=== PATIENT | female | born 1955 | race Caucasian/White ===

== ENCOUNTER 2017-11-11 14:45 | Inpatient (IN) | payer OTHER ==
[~2017-11-11] VITALS: Ht 157.5 cm; Wt 68.0 kg
[2017-11-12] MEDS ORDERED: NORVASC5 MG PO (10:44)
[2017-11-12] MEDS ORDERED: SYNTHROID88 MCG PO (10:44)
[2017-11-15] MEDS ORDERED: COLACE100 MG PO (09:28)
[2017-11-15] MEDS ORDERED: ULTRACET PO (09:28)
== END 2017-11-15 09:42 | DRG 743 ==
LOC: SURH 11-14 01:15 → O/R 11-14 06:33 → SURH 11-14 08:45 → OB/GYN 11-14 15:05
PROVIDERS: Obstetrics & Gynecology Gynecologic Oncology
PROC: 0UT74ZZ Resection of Bilateral Fallopian Tubes, Percutaneous Endoscopic Approach (ICD-10-PCS; 2017-11-14)
PROC: 0UT24ZZ Resection of Bilateral Ovaries, Percutaneous Endoscopic Approach (ICD-10-PCS; 2017-11-14)
PROC: 0UT94ZZ Resection of Uterus, Percutaneous Endoscopic Approach (ICD-10-PCS; principal; 2017-11-14 01:15)
DX: D25.1 Intramural leiomyoma of uterus (principal); D25.0 Submucous leiomyoma of uterus; N83.292 Other ovarian cyst, left side; N83.291 Other ovarian cyst, right side; N72 Inflammatory disease of cervix uteri